=== PATIENT | male | born 1955 | race Caucasian/White ===

== ENCOUNTER 2020-05-15 16:51 | Emergency (ER) | payer MEDICARE ==
--- NOTE | 2020-05-15 16:56 | ERPHSYRPT ---
- History of Present Illness Time Seen by Provider: 05/15/20 16:56 Historian: patient Exam Limitations: no limitations Physician History: This is a 65-year-old white male who has diabetes and hypertension and is taking Plavix and has a history of right elbow cellulitis. Patient has been treated in the infusion center on a daily basis with intravenous daptomycin (Cubicin). Patient states that although the Cubicin seems to give him nausea after every treatment, he has been nauseated even before this past week. Today he had his daptomycin infusion and began having multiple episodes of vomiting. Patient denies shortness of breath and he denies chest pain. He has no abdominal pain. Patient does have a history in the past of anemia. Patient is a patient of Dr. Barr. He informed the infusion center to send the patient to the emergency department for evaluation and possible admission. Timing/Duration: today Activities at Onset: none Quality: other Abdominal Pain Onset Location: other (None) Severity of Pain-Max: none Severity of Pain-Current: none Modifying Factors: Improves With: vomiting Associated Symptoms: loss of appetite, nausea, vomiting Previous symptoms: same symptoms as today Allergies/Adverse Reactions: morphine Allergy (Intermediate, Verified 05/12/20 10:33) pregabalin [From Lyrica] Allergy (Intermediate, Verified 05/15/20 17:13) sulfamethoxazole [From Bactrim] Allergy (Intermediate, Verified 05/12/20 10:33) trimethoprim [From Bactrim] Allergy (Intermediate, Verified 05/12/20 10:33) Home Medications: Chlorthalidone 25 mg PO DAILY 05/15/20 [History] Clopidogrel Bisulfate [Clopidogrel] 75 mg PO DAILY 05/15/20 [History] Gabapentin 600 mg PO QID 05/15/20 [History] Glimepiride 4 mg [Amaryl 4 mg] 4 mg PO DAILY 05/15/20 [History] Ibuprofen 800 mg PO BID 05/15/20 [History] Metformin HCl [Glucophage] 1,000 mg PO BID 05/15/20 [History] Pioglitazone 30 mg [Actos 30 MG] 30 mg PO DAILY 05/15/20 [History] Ramipril [Altace] 10 mg PO DAILY 05/15/20 [History] carvediloL [Carvedilol] 6.25 mg PO BID 05/15/20 [History] Travel Risk - International Travel Have you traveled outside of the country in past 3 weeks: No - Coronavirus Screening Are you exhibiting any of the following symptoms?: No Close contact with a COVID-19 positive Pt in past 14-21 Days: No - Review of Systems Constitutional: Weakness Eyes: No Symptoms Ears, Nose, & Throat: No Symptoms Respiratory: No Symptoms Cardiac: No Symptoms Abdominal/Gastrointestinal: Nausea, Vomiting Genitourinary Symptoms: No Symptoms Musculoskeletal: No Symptoms Neurological: No Symptoms Psychological: No Symptoms Endocrine: No Symptoms Hematologic/Lymphatic: No Symptoms Immunological/Allergic: No Symptoms All Other Systems: Reviewed and Negative - Past Medical History Pertinent Past Medical History: Yes Neurological History: No Pertinent History ENT History: No Pertinent History Cardiac History: Coronary Artery Disease, High Cholesterol, Hypertension Respiratory History: No Pertinent History Endocrine Medical History: Diabetes Type II Musculoskeletal History: Arthritis GI Medical History: Pancreatitis History: No Pertinent History Psycho-Social History: No Pertinent History Male Reproductive Disorders: Prostate Problems - Past Surgical History Past Surgical History: Yes Neuro Surgical History: No Pertinent History Cardiac: CABG Respiratory: No Pertinent History Gastrointestinal: No Pertinent History Genitourinary: No Pertinent History Musculoskeletal: No Pertinent History Other Surgical History: Left hip replacement. Facial reconstruction - Social History Smoking Status: Former smoker Exposure to second hand smoke: Yes Drug Use: none - Nursing Vital Signs Nursing Vital Signs: Initial Vital Signs Temperature 97.6 F 05/15/20 17:00 Pulse Rate 77 05/15/20 17:00 Respiratory Rate 18 05/15/20 17:00 Blood Pressure 154/85 05/15/20 17:00 O2 Sat by Pulse Oximetry 100 05/15/20 17:00 Pain Scale Pain Intensity 5 - Physical Exam General Appearance: mild distress, alert, anxiety, obese Eye Exam: PERRL/EOMI, eyes nml inspection Ears, Nose, Throat Exam: normal ENT inspection, dry mucous membranes Neck Exam: normal inspection, non-tender, supple, full range of motion Respiratory Exam: normal breath sounds, lungs clear, airway intact, No chest tenderness, No respiratory distress Cardiovascular Exam: regular rate/rhythm, normal heart sounds, normal peripheral pulses Gastrointestinal/Abdomen Exam: soft, normal bowel sounds, No tenderness Rectal Exam: not done Back Exam: normal inspection, normal range of motion, No CVA tenderness, No vertebral tenderness Extremity Exam: normal inspection, normal range of motion, pelvis stable Neurologic Exam: alert, oriented x 3, cooperative, civil engineering designer II-XII nml as tested Skin Exam: other (Cellulitis right elbow) Lymphatic Exam: No adenopathy SpO2 Interpretation: normal O2 Delivery: Room Air - Course Nursing assessment & vital signs reviewed: Yes EKG Interpreted by Me: RATE (75), Sinus Rhythm, NORMAL AXIS, NORMAL INTERVALS, NORMAL QRS, NORMAL ST-T, Other (No acute ischemic changes present. There is no comparison EKG available.) Ordered Tests: Active Orders 24 hr Category Date Time Status Solidworks Designer STAT Care 05/15/20 18:07 Active EKG-ER Only STAT Care 05/15/20 18:07 Active IV Insertion STAT Care 05/15/20 17:02 Active AMYLASE Stat Lab 05/15/20 17:10 Completed CBC W DIFF Stat Lab 05/15/20 17:10 Completed CMP Stat Lab 05/15/20 17:10 Completed LIPASE Stat Lab 05/15/20 17:10 Completed Lactic Acid Stat Lab 05/15/20 17:24 Completed UA W/RFX UR CULTURE Stat Lab 05/15/20 17:10 Received Medication Summary Discontinued Medications Generic Name Dose Route Start Last Admin Trade Name Freq PRN Reason Stop Dose Admin Sodium Chloride 1,000 mls @ 999 mls/hr 05/15/20 17:02 05/15/20 18:24 Sodium Chloride 0.9% 1000 Ml IV 05/15/20 18:02 Infused .Q1H1M STA Infusion Sodium Chloride Confirm 05/15/20 17:15 Sodium Chloride 0.9% 1000 Ml Administered 05/15/20 17:16 Dose 1,000 mls @ ud .ROUTE .STK-MED ONE Ondansetron HCl 4 mg 05/15/20 17:02 05/15/20 17:19 Zofran 4 Mg/2 Ml Vial IV 05/15/20 17:03 4 mg STAT ONE Administration Ondansetron HCl Confirm 05/15/20 17:15 Zofran 4 Mg/2 Ml Vial Administered 05/15/20 17:16 Dose 4 mg .ROUTE .STK-MED ONE Lab/Rad Data: Laboratory Result Diagrams 05/15/20 17:10 05/15/20 17:10 Laboratory Results 05/15/20 05/15/20 05/15/20 Range/Units 17:24 17:10 17:10 WBC 10.2 (4.0-10.5) K/mm3 RBC 3.50 L (4.1-5.6) M/mm3 Hgb 9.7 L (12.5-18.0) gm/dl Hct 28.8 L (42-50) % MCV 82.3 (78-100) fl MCH 27.7 (26-32) pg MCHC 33.7 (32-36) g/dl RDW 14.5 H (11.5-14.0) % Plt Count 322 (150-450) K/mm3 MPV 8.5 (7.5-11.0) fl Gran % 82.4 H (36.0-66.0) % Eos # (Auto) 0.05 (0-0.5) Absolute Lymphs (auto) 1.03 (1.0-4.6) Absolute Monos (auto) 0.70 (0.0-1.3) Lymphocytes % 10.1 L (24.0-44.0) % Monocytes % 6.9 (0.0-12.0) % Eosinophils % 0.5 (0.00-5.0) % Basophils % 0.1 (0.0-0.4) % Absolute Granulocytes 8.37 H (1.4-6.9) Basophils # 0.01 (0-0.4) Sodium 120 L* (137-145) mmol/L Potassium 5.2 H (3.5-5.1) mmol/L Chloride 82 L (98-107) mmol/L Carbon Dioxide 21 L (22-30) mmol/L Anion Gap 21.0 H (5-15) MEQ/L BUN 70 H (9-20) mg/dL Creatinine 7.24 H (0.66-1.25) mg/dL Estimated GFR 8.1 ML/MIN Glucose 333 H (74-106) mg/dL Lactic Acid 1.4 (0.4-2.0) Calcium 8.3 L (8.4-10.2) mg/dL Total Bilirubin 0.50 (0.2-1.3) mg/dL AST 252 H (17-59) U/L ALT 64 H (0-50) U/L Alkaline Phosphatase 83 (38-126) U/L Serum Total Protein 7.8 (6.3-8.2) g/dL Albumin 3.5 (3.5-5.0) g/dL Amylase 57 (30-110) U/L Lipase 152 (23-300) U/L - Progress Progress: unchanged, re-examined Progress Note: 05/15/20 19:03 Medical decision making: This patient Counseled pt/family regarding: lab results, diagnosis, need for follow-up - Departure Referrals: KONRAD BARR MD [Primary Care Provider] -
[2020-05-15] MEDS ORDERED: Zofran 4 MG/2 ML VIAL IV ONE (17:02)
[2020-05-15] MEDS ORDERED: Sodium Chloride 0.9% 1000 ML 1,000 ML IV STA (17:02)
[2020-05-15] MEDS ORDERED: Sodium Chloride 0.9% 1000 ML 1,000 ML ONE (17:15)
[2020-05-15] MEDS ORDERED: Zofran 4 MG/2 ML VIAL ONE (17:15)
[2020-05-15 17:24] LABS: Absolute Neutrophil Ct (ANC) 8.37 (1.4-6.9); BASOPHIL % 0.1 % (0.0-0.4); Basophil (Absolute #) 0.01 (0-0.4); Eosinophil % 0.5 % (0.00-5.0); Eosinophil (Absolute #) 0.05 (0-0.5); Hematocrit 28.8 % (42-50); Hemoglobin 9.7 gm/dl (12.5-18.0); Lymphocyte (Absolute #) 1.03 (1.0-4.6); Lymphocytes % 10.1 % (24.0-44.0); Mean Cell Volume 82.3 fl (78-100); Mean Corpuscular Hemoglobin 27.7 pg (26-32); Mean Corpuscular Hgb Concent. 33.7 g/dl (32-36); Mean Platelet Volume 8.5 fl (7.5-11.0); Monocytes % 6.9 % (0.0-12.0); Neutrophil % 82.4 % (36.0-66.0); Platelet Count 322 K/mm3 (150-450); Red Cell Distribution Width 14.5 % (11.5-14.0); White Blood Count 10.2 K/mm3 (4.0-10.5)
[2020-05-15 17:37] LABS: ALBUMIN 3.5 g/dL (3.5-5.0); BILIRUBIN,TOTAL 0.5 mg/dL (0.2-1.3); Calcium 8.3 mg/dL (8.4-10.2); Creatinine 1 7.24 mg/dL (0.66-1.25); EST GLOMERULAR FILTRATION RATE 8.1 ML/MIN; Potassium 5.2 mmol/L (3.5-5.1); Total Protein 7.8 g/dL (6.3-8.2)
[2020-05-15 20:03] VITALS: BP 176/93; PULSE 72; O2SAT 99
== END 2020-05-15 20:00 | disposition short-term general hospital (02) ==
LOC: ED 16:51
DX: R11.2 Nausea with vomiting, unspecified (principal); L03.113 Cellulitis of right upper limb; I10 Essential (primary) hypertension; E11.9 Type 2 diabetes mellitus without complications; Z79.4 Long term (current) use of insulin; E78.00 Pure hypercholesterolemia, unspecified; Z79.899 Other long term (current) drug therapy; R53.1 Weakness
CPT/HCPCS: 36000; 36415; 80053; 82150; 83605; 83690; 85025; 93005; 93041; 96360; 96374; 99285; J2405